=== PATIENT | female | born 1990 | race Caucasian/White ===

== ENCOUNTER 2016-04-11 21:51 | Emergency (ER) | payer OTHER ==
[2016-04-11] MEDS ORDERED: ONDANSETRON ODT 4 MG TAB PO STA (23:40)
--- NOTE | 2016-04-12 00:05 | ED ---
General Adult HPI - General Chief complaint: Back Pain/Injury Stated complaint: Right Flank Pain Time Seen by Provider: 04/11/16 23:14 Source: patient, RN notes reviewed Mode of arrival: ambulatory Limitations: no limitations - History of Present Illness Initial comments: Patient's a 25-year-old female who presents emergency room today with chief complaint of right flank pain. Does admit to urinary tract infection that she was treated with Cipro for. She states she finished this just the other day. States having a difficult time urinating today. States she went this one approximately 10:30 AM has not gone sounds. Patient does admit to pain located in the right flank. Currently at [facility]. Patient denies any other complaints associated symptoms. Patient denies any recent fever, chills, shortness of breath, chest pain, numbness or tingling, dysuria or hematuria, constipation or diarrhea, headaches or visual changes, or any other complaints. - Related Data Home Medications Medication Instructions Recorded Confirmed No Known Home Medications [No 04/11/16 04/11/16 Known Home Medications] Allergies Allergy/AdvReac Type Severity Reaction Status Date / Time amoxicillin Allergy Rash/Hives Verified 04/11/16 22:53 cefaclor [From Ceclor] Allergy Anaphylaxis Verified 04/11/16 22:53 clavulanic acid Allergy Rash/Hives Verified 04/11/16 22:53 [From Augmentin] diphenhydramine Allergy Hallucinati Verified 04/11/16 22:53 [From Benadryl] ons erythromycin base Allergy Rash/Hives Verified 04/11/16 22:53 ibuprofen [From Motrin] Allergy Swelling Verified 04/11/16 22:53 ketorolac [From Toradol] Allergy Rash/Hives Verified 04/11/16 22:53 Penicillins Allergy Rash/Hives Verified 04/11/16 22:53 Sulfa (Sulfonamide Allergy Anaphylaxis Verified 04/11/16 22:53 Antibiotics) vancomycin Allergy Rash/Hives Verified 04/11/16 22:53 Cephalosporins AdvReac Anaphylaxis Verified 04/11/16 22:53 Review of Systems ROS Statement: Those systems with pertinent positive or pertinent negative responses have been documented in the HPI. ROS Other: All systems not noted in ROS Statement are negative. Past Medical History Additional Past Medical History / Comment(s): opiate addiction, pylonephritis History of Any Multi-Drug Resistant Organisms: MRSA Date of last positivie culture/infection: 2007 MDRO Source:: blood Past Surgical History: Cholecystectomy Additional Past Surgical History / Comment(s): renal stent Past Psychological History: Anxiety, Bipolar, Depression Smoking Status: Current every day smoker Past Alcohol Use History: None Reported Past Drug Use History: Heroin General Exam - General Exam Comments Initial Comments: General: The patient is awake and alert, in no distress, and does not appear acutely ill. Eye: Pupils are equal, round and reactive to light, extra-ocular movements are intact. No nystagmus. There is normal conjunctiva bilaterally. No signs of icterus. Ears, nose, mouth and throat: There are moist mucous membranes and no oral lesions. Neck: The neck is supple, there is no tenderness or JVD. Cardiovascular: There is a regular rate and rhythm. No murmur, rub or gallop is appreciated. Respiratory: Lungs are clear to auscultation, respirations are non-labored, breath sounds are equal. No wheezes, stridor, rales, or rhonchi. Gastrointestinal: Normal appearance abdomen. Normal bowel sounds. Abdomen soft on palpation. Patient does have tenderness right flank. No rebound tenderness. No Guarding. Musculoskeletal: Normal ROM, no tenderness. Strength 5/5. Sensation intact. Pulses equal bilaterally 2+. Neurological: A&O x 3. CN II-XII intact, There are no obvious motor or sensory deficits. Coordination appears grossly intact. Speech is normal. Skin: Skin is warm and dry and no rashes or lesions are noted. Psychiatric: Cooperative, appropriate mood & affect, normal judgment. Limitations: no limitations Course Vital Signs 04/11/16 04/12/16 22:46 00:00 Temperature 97.6 F 98.1 F Pulse Rate 108 H 94 Respiratory 18 16 Rate Blood Pressure 148/63 138/86 O2 Sat by Pulse 99 100 Oximetry Medical Decision Making - Medical Decision Making Patient's x-ray reviewed and shows no acute abnormalities. Results were discussed with patient. Otero catheter placed by nursing staff in the emergency room for retention. Patient will be discharged home advised follow- up with urologist or family doctor over the next 1-2 days. Advised return to emergency room if any symptoms increase or worsen or for any other concerns. - Lab Data Lab Results 04/11/16 04/11/16 Range/Units 23:35 23:35 Urine Color Yellow Urine Appearance Clear (Clear) Urine pH 7.0 (5.0-8.0) Ur Specific [place] 1.014 (1.001-1.035) Urine Protein Negative (Negative) Urine Glucose (UA) Negative (Negative) Urine Ketones Negative (Negative) Urine Blood Negative (Negative) Urine Nitrate Negative (Negative) Urine Bilirubin Negative (Negative) Urine Urobilinogen <2.0 (<2.0) mg/dL Ur Leukocyte Esterase Negative (Negative) Urine HCG, Qual Not Detected (Not Detectd) Disposition Clinical Impression: Urinary retention Disposition: HOME SELF-CARE Condition: Good Instructions: Acute Urinary Retention in Women (ED) Additional Instructions: Please follow-up the family doctor or urologist over the next 1-2 days. Please return here to the emergency room if any symptoms increase or worsen or for any other concerns. Referrals: None,Stated [Primary Care Provider] - 1-2 days Gino Ramsay MD [STAFF PHYSICIAN] - 1-2 days Time of Disposition: 00:49
[2016-04-12 00:06] LABS: Appearance,Urine Clear (Clear); Bilirubin,Urine Negative (Negative); Glucose,Urine (UA) Negative (Negative); Ketones,Urine Negative (Negative); Leukocyte Esterase,Urine Negative (Negative); Nitrite,Urine Negative (Negative); Protein,Urine Negative (Negative); Specific Gravity,Urine 1.014 (1.001-1.035); UA Billing (MACRO vs. MICRO) CHEM; Urobilinogen,Urine <2.0 mg/dL (<2.0)
[2016-04-12 01:24] VITALS: RESP 18
--- NOTE | 2016-04-12 02:40 | XR ---
EXAMINATION TYPE: XR KUB DATE OF EXAM: 04/12/2016 12:43 AM CLINICAL HISTORY: Right flank pain history of stones and pyelonephritis. TECHNIQUE: Single supine KUB image of the abdomen is obtained. COMPARISON: None. FINDINGS: Scattered gas is seen in non-distended small bowel loops. Gas and fecal material is seen in non-distended colon. There is no visceromegaly, pneumoperitoneum, or abnormal calcification appr eciated. The lung bases are clear and the osseous structures are intact. Surgical clips are noted judd perimposing the right upper abdomen with cholecystectomy changes. Umbilical jewelry is noted. Mild le voscoliosis is noted in the thoracolumbar spine. IMPRESSION: Overall nonobstructive bowel gas pattern.
[2016-04-12 03:18] VITALS: BP 122/67; PULSE 90; TEMP 97
== END 2016-04-12 03:18 | disposition home or self-care (01) ==
LOC: EC 21:51
DX: R33.9 Retention of urine, unspecified (principal); Z88.0 Allergy status to penicillin; Z88.6 Allergy status to analgesic agent; Z88.1 Allergy status to other antibiotic agents; Z88.2 Allergy status to sulfonamides; Z88.8 Allergy status to other drugs, medicaments and biological substances; F17.200 Nicotine dependence, unspecified, uncomplicated
CPT/HCPCS: 51702; 51798; 74000; 81003; 81025; 87086; 99284